=== PATIENT | female | born 1995 | race Caucasian/White ===

== ENCOUNTER 2025-01-21 09:08 | Emergency (ER) | payer BC, SELFPAY ==
[2025-01-21 09:09] VITALS: BP 145/86
--- NOTE | 2025-01-21 10:09 | ED.GENMED ---
History of Present Illness
General
Chief Complaint: Abdominal Pain
Source: patient
Exam Limitations: none
Time Seen by Provider: 01/21/25 09:36
Nursing documentation reviewed up to this point in time: agreed with
History of Present Illness
History of Present Illness:
29 yo healthy female presents for abdominal pain that began 5 days ago. The pain is located in the mid-upper abdomen and was initially thought to be gas pain. She reports using caqk-pev-nqnthtd gas relief medications, which offered temporary relief.
However, the pain has now become persistent, worsened this morning, and she describes it as a sharp pressure that makes standing uncomfortable. The pain has been present since 8 a.m. and is associated with one episode of vomiting last night, after
which she experienced cold sweats. The patient does not currently feel nauseous. She rates the pain as 7 out of 10 and reports no recent fever or chest pain. She reports feeling febrile last night but no documented fever.
The patient denies any urinary symptoms and reports normal bowel movements as of 6 p.m. yesterday. Laying on her left side or stomach provides some relief, while eating initially alleviates the pain, but it returns immediately after. The pain is
most intense mid to upper abdomen, pressing on the area provides a peculiar relief but it returns immediately afterward.
Past History
Past History
ED Past Medical History: None
ED Past Surgical History: None
Social History
Tobacco: Non-smoker
Alcohol: Occasional
Personal:
Living: with family
Employment: Employed
Review of Systems
Review of Systems
Allergies reviewed?: Yes
All Other Systems: ROS reviewed and negative except as documented in HPI and ROS
: Reports other (Her last menstrual period started on 11/16.)
Phy Exam
Physical Exam
Physical Exam:
GENERAL: No acute distress. A&Ox3.
CONSTITUTIONAL: Afebrile.
EYES: clear, conjunctivae normal
ENMT: moist mucus membranes, Pharynx nl
RESPIRATORY: Regular respirations, nonlabored, lungs clear.
CARDIOVASCULAR: Regular rate and rhythm, no murmurs, no rubs.
GI: Soft, mild tenderness mid to upper abdomen, non distended, no guarding. normal BS
MUSCULOSKELETAL: Moves with ease. Well perfused.
SKIN: Warm, dry, pink
PSYCH: Normal mood and affect. Well kept, interactive and appropriate
NEUROLOGIC: Awake, alert and oriented. No focal neurological deficits
Course
Orders/Labs/Results
Orders:
Orders
01/21/25 10:20
Test Result ONCE
US Abdomen - Appendix Only Urgent
Comment:
Reason For Exam: periumbilical pain
US Abdomen Complete/Upper Urgent
Comment:
Reason For Exam: periumbilical and epigastric pain
01/21/25 10:30
Complete Blood Count/With Diff Urgent
Comprehensive Metabolic Panel Urgent
HCG, Serum Qualitative Screen Urgent
Lipase Urgent
01/21/25 12:34
Pantoprazole [Protonix IV] 80 mg IV NOW STA
Abnormal Lab Results
01/21/25
10:30
BUN 19 H mg/dl
(7-17)
01/21/25 10:30
01/21/25 10:30
Vital Signs
Initial and Last Documented VS:
Initial Vital Signs
Temp Pulse Resp BP Pulse Ox
98.2 F 68 16 145/86 98
01/21/25 09:09 01/21/25 09:09 01/21/25 09:09 01/21/25 09:09 01/21/25 09:09
Last Documented Vital Signs
Temp Pulse Resp BP Pulse Ox
98.2 F 67 18 118/79 98
01/21/25 09:09 01/21/25 12:29 01/21/25 12:29 01/21/25 12:29 01/21/25 12:29
MDM/Problems Addressed
Differential Diagnosis Includes:
Cholecystitis, gastritis, pancreatitis, GERD, appendicitis
MDM/Problems Addressed:
29 yo healthy female presents for abdominal pain that began 5 days ago. The pain is located in the mid-upper abdomen and was initially thought to be gas pain. She reports using hyzi-yrx-hshlixb gas relief medications, which offered temporary relief.
However, the pain has now become persistent, worsened this morning, and she describes it as a sharp pressure that makes standing uncomfortable. The pain has been present since 8 a.m. and is associated with one episode of vomiting last night, after
which she experienced cold sweats. The patient does not currently feel nauseous. She rates the pain as 7 out of 10 and reports no recent fever or chest pain. She reports feeling febrile last night but no documented fever.
The patient denies any urinary symptoms and reports normal bowel movements as of 6 p.m. yesterday. Laying on her left side or stomach provides some relief, while eating initially alleviates the pain, but it returns immediately after. The pain is
most intense mid to upper abdomen, pressing on the area provides a peculiar relief but it returns immediately afterward.
11:00 AM
CBC normal
CMP normal
12:30 PM:
Ultrasound upper abdomen complete and also appendix ultrasound both unremarkable
Will give a trial of PPI and follow-up with GI as needed
Patient appears comfortable, smiling, she and are comfortable with plan
Copy of ultrasound report given to patient
History and exam are most consistent with gastritis/GERD
*Pulse Oximetry
SaO2: 98
Oxygen Mode of Delivery: Room air
Patient hypoxic: no
*Critical Care Note
Total Time (30-74mins, 75-104mins- exclusive of procedures): Not Applicable
ED Attending Note
-
Portions of this chart may have been created with voice recognition software.� Occasional wrong word or��sound alike� substitutions may have occurred due to the inherent limitations of voice recognition software.
Discharge Plan
Departure
Patient Disposition: Home (Routine Discharge)
Date of Disposition: 01/21/25
Time of Disposition: 12:39
Patient with high blood pressure during this ER visit?: No
Condition: Good
Discharge Problem:
Acute epigastric pain
Instructions: Acid Reflux and GERD in Adults (DC), Gastritis (DC)
Prescriptions:
New
pantoprazole [Protonix] [address] for susp in packet
40 mg PO DAILY Qty: 20 0RF
Referrals:
Meeta Arreguin, DO [Active, Gastroenterology] - Next open appointment
UNKNOWN - PT DOES,NOT KNOW [Family Provider]
Activity Restrictions/Additional Instructions:
As we discussed, nothing worrisome in your workup here today.
I sent a prescription to your pharmacy for Protonix to take once a day for up to 2 weeks. Started tomorrow you were given a dose here today and your IV line
See the GI doctor if you are not a lot better in 1 week
Interventions
Interventions:
*ED COVID-19 Vaccine History Last Done: 01/21/25 10:34
*ED Influenza Vaccine History Last Done: 01/21/25 10:34
[facility] Fall Risk Assessment Tool Last Done: 01/21/25 10:57
*Nursing Disposition Last Done: 01/21/25 13:03
VS-Scucys-Jkotkjjxdo Assessment Last Done: 01/21/25 10:58
Discharge Date and Time
Discharge Date/Time: 01/21/25 13:04
Print Language: SYRIAN
[2025-01-21 10:34] VITALS: BMI 27.3
[2025-01-21 10:42] LABS: Hematocrit 38.3 % (37.0-47.0); Hemoglobin 13.2 g/dL (12.0-16.0); Mean Corp Hgb Conc. 34.5 g/dL (33.0-37.0); Mean Corpuscular Volume 87.6 fL (81.0-99.0); Nucleated Red Blood Cells % 0 %; Platelet Count 222 10^3/uL (130-400); Red Cell Dist. Width 12.4 % (11.5-14.5)
[2025-01-21 10:53] LABS: HCG, Serum Qualitative Screen Negative
[2025-01-21 11:04] LABS: ALT (SGPT) 18 U/L (0-35); AST (SGOT) 24 U/L (14-36); Albumin 4.6 g/dl (3.5-5.0); Alkaline Phosphatase 80 U/L (38-126); Blood Urea Nitrogen 19 mg/dl (7-17); Calcium 9.5 mg/dl (8.4-10.2); Carbon Dioxide 24 mmol/L (22-30); Chloride 106 mmol/L (98-107); Estimated Creatinine Clearance 112 ml/min; Glucose 92 mg/dl (70-99); Lipase 84 U/L (23-300); Potassium 4.9 mmol/L (3.5-5.1); Sodium 137 mmol/L (135-145); Total Protein 7.9 g/dl (6.3-8.2); eGFR > 60.00
[2025-01-21 12:29] VITALS: BP 118/79
[2025-01-21] MEDS: PROTONIX IV 80 MG IV (12:52)
== END 2025-01-21 13:04 | disposition home or self-care (01) ==
LOC: EMR 09:08
PROVIDERS: Registered Nurse; EMERGENCY PHYSICIAN Student in an Organized Health Care Education/Training Program
DX: R10.13 Epigastric pain (principal)
CPT/HCPCS: 96374; 99284; 76700; 76705; 80053; 83690; 84703; 85025